=== PATIENT | male | born 1980 | race Caucasian/White ===

== ENCOUNTER 2018-01-19 19:11 | Emergency (ER) | payer OTHER ==
[2018-01-19] MEDS ORDERED: Sodium Chloride 0.9% 1000 ML 1,000 ML IV STA ×2 (19:33)
--- NOTE | 2018-01-19 19:37 | ERPHSYRPT ---
- History of Present Illness Time Seen by Provider: 01/19/18 19:29 Source: patient Exam Limitations: no limitations Patient Subjective Stated Complaint: pt reports being outside on a roof since 0700. states around 1510 he came off the roof and started feeling bad. reports headache and nausea. Triage Nursing Assessment: pt is aox3, pupils perrl, pt afebrile, resps easy and non labored, radial pulses strong and equal, cap refill <3 seconds. pt skin is pink warm and dry. Physician History: 37-year-old white male arrives with complaint of headache and nausea symptoms since 15:10 this afternoon. Patient states he was out on a hot roof all day he had the above noted symptoms beginning around 310 this afternoon. Patient states he tried cooling off however he continues to feel the same. Patient no problems moving he is somewhat diaphoretic. Past medical history is negative. Past surgical history includes orthopedic surgery left shoulder and left elbow surgery. Timing/Duration: today (3:10 pm) Severity: moderate Modifying Factors: Improves With: other (ouut on hot roof all day) Associated Symptoms: nausea, diaphoresis, headaches, No vomiting, No abdominal pain, No shortness of breath, No heartburn, No cough, No chills, No chest pain, No fever, No loss of appetite, No malaise, No rash, No syncope, No seizure, No weakness Allergies/Adverse Reactions: No Known Drug Allergies Allergy (Unverified 01/19/18 19:27) Home Medications: No Reportable Medications [No Reported Medications] 01/19/18 [History] Hx Tetanus, Diphtheria Vaccination/Date Given: Yes Hx Influenza Vaccination/Date Given: No Hx Pneumococcal Vaccination/Date Given: No Immunizations Up to Date: Yes - Review of Systems Constitutional: Malaise, No Fever, No Chills, No Fatigue, No Lethargy, No Night Sweats, No Weakness, No Weight Loss Eyes: No Symptoms Ears, Nose, & Throat: No Symptoms Respiratory: No Cough, No Dyspnea Cardiac: No Chest Pain, No Edema, No Syncope Abdominal/Gastrointestinal: Nausea, No No Symptoms, No Abdominal Pain, No Vomiting, No Diarrhea, No Constipation, No Hematemesis, No Hematochezia, No Melena, No Dysphagia, No Appetite Changes Genitourinary Symptoms: No Dysuria Musculoskeletal: No Back Pain, No Neck Pain Skin: No Rash Neurological: Headache, No Dizziness, No Focal Weakness, No Gait Changes, No Irritability, No Lethargy, No Paralysis, No Parasthesia, No Seizure, No Sensory Changes, No Speech Changes, No Tics, No Tremors, No Vertigo Psychological: No Symptoms Endocrine: No Symptoms All Other Systems: Reviewed and Negative - Past Medical History Pertinent Past Medical History: No - Past Surgical History Past Surgical History: Yes Musculoskeletal: Orthopedic Surgery Other Surgical History: left shoulder. right elbow - Social History Smoking Status: Current every day smoker Drug Use: marijuana Patient Lives Alone: No - Nursing Vital Signs Nursing Vital Signs: Initial Vital Signs Temperature 98.1 F 01/19/18 19:16 Pulse Rate 66 01/19/18 19:16 Respiratory Rate 20 01/19/18 19:16 Blood Pressure 127/84 01/19/18 19:16 O2 Sat by Pulse Oximetry 100 01/19/18 19:16 Pain Scale Pain Intensity 4 - Physical Exam General Appearance: mild distress, anxiety, other (diaphoretic) Eye Exam: PERRL/EOMI, eyes nml inspection Ears, Nose, Throat Exam: normal ENT inspection, TMs normal, pharynx normal, moist mucous membranes Neck Exam: normal inspection, non-tender, supple, full range of motion Respiratory Exam: normal breath sounds, lungs clear, No respiratory distress Cardiovascular Exam: regular rate/rhythm, normal heart sounds, normal peripheral pulses Gastrointestinal/Abdomen Exam: soft, normal bowel sounds, No tenderness, No mass Back Exam: normal inspection, normal range of motion, No CVA tenderness, No vertebral tenderness Extremity Exam: normal inspection, normal range of motion, pelvis stable Neurologic Exam: alert, oriented x 3, cooperative, 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 as tested, normal mood/affect, nml cerebellar function, nml station & gait, sensation nml, No motor deficits Skin Exam: normal color, warm, dry, No rash Lymphatic Exam: No adenopathy SpO2 Interpretation: normal (100%) SpO2: 100 Oxygen Delivery: Room Air - Course Nursing assessment & vital signs reviewed: Yes EKG Interpreted by Me: RATE (69 bpm), Sinus Rhythm, NORMAL AXIS, Other (EKG: Sinus rhythm, 69 bpm, artifact ,, normal axis, no acute ST or T wave noted essentially normal EKG) Ordered Tests: Active Orders 24 hr Category Date Time Status EKG-ER Only STAT Care 01/19/18 19:32 Active IV Insertion STAT Care 01/19/18 19:32 Active AMYLASE Stat Lab 01/19/18 19:43 Completed CBC W DIFF Stat Lab 01/19/18 19:43 Completed CMP Stat Lab 01/19/18 19:43 Completed LIPASE Stat Lab 01/19/18 19:43 Completed UA W/RFX UR CULTURE Stat Lab 01/19/18 20:26 Completed Urine Triage Profile Stat Lab 01/19/18 20:26 Completed Medication Summary Discontinued Medications Generic Name Dose Route Start Last Admin Trade Name Freq PRN Reason Stop Dose Admin Sodium Chloride 1,000 mls @ 999 mls/hr 01/19/18 19:33 01/19/18 19:44 Sodium Chloride 0.9% 1000 Ml IV 01/19/18 20:33 999 mls/hr .Q1H1M STA Administration Sodium Chloride 1,000 mls @ 999 mls/hr 01/19/18 19:33 01/19/18 20:16 Sodium Chloride 0.9% 1000 Ml IV 01/19/18 20:33 999 mls/hr .Q1H1M STA Administration Sodium Chloride Confirm 01/19/18 19:43 Sodium Chloride 0.9% 1000 Ml Administered 01/19/18 19:44 Dose 1,000 mls @ ud .ROUTE .STK-MED ONE Sodium Chloride Confirm 01/19/18 20:12 Sodium Chloride 0.9% 1000 Ml Administered 01/19/18 20:13 Dose 1,000 mls @ ud .ROUTE .STK-MED ONE Lab/Rad Data: Laboratory Result Diagrams 01/19/18 19:43 01/19/18 19:43 Laboratory Results 01/19/18 01/19/18 01/19/18 Range/Units 20:26 20:26 19:43 WBC (4.0-10.5) K/mm3 RBC (4.1-5.6) M/mm3 Hgb (12.5-18.0) gm/dl Hct (42-50) % MCV (78-100) fl MCH (26-32) pg MCHC (32-36) g/dl RDW (11.5-14.0) % Plt Count (150-450) K/mm3 MPV (6-9.5) fl Gran % (36.0-66.0) % Eos # (Auto) (0-0.5) Absolute Lymphs (auto) (1.0-4.6) Absolute Monos (auto) (0.0-1.3) Lymphocytes % (24.0-44.0) % Monocytes % (0.0-12.0) % Eosinophils % (0.00-5.0) % Basophils % (0.0-0.4) % Absolute Granulocytes (1.4-6.9) Basophils # (0-0.4) Sodium 139 (137-145) mmol/L Potassium 4.1 (3.5-5.1) mmol/L Chloride 102 (98-107) mmol/L Carbon Dioxide 21 L (22-30) mmol/L Anion Gap 20.2 H (5-15) MEQ/L BUN 19 (9-20) mg/dL Creatinine 1.16 (0.66-1.25) mg/dL Estimated GFR > 60.0 ML/MIN Glucose 97 (74-106) mg/dL Calcium 10.5 H (8.4-10.2) mg/dL Total Bilirubin 0.60 (0.2-1.3) mg/dL AST 30 (17-59) U/L ALT 22 (0-50) U/L Alkaline Phosphatase 91 (38-126) U/L Serum Total Protein 8.5 H (6.3-8.2) g/dL Albumin 5.0 (3.5-5.0) g/dL Amylase 70 (30-110) U/L Lipase 194 (23-300) U/L Ur Collection Type VOID Urine Color YELLOW (YELLOW) Urine Appearance CLEAR (CLEAR) Urine pH 5.0 (5-6) Ur Specific [place] 1.015 (1.005-1.025) Urine Protein NEGATIVE (Negative) Urine Ketones MODERATE (NEGATIVE) Urine Blood NEGATIVE (0-5) Monty/ul Urine Nitrite NEGATIVE (NEGATIVE) Urine Bilirubin NEGATIVE (NEGATIVE) Urine Urobilinogen NORMAL (0-1) mg/dL Ur Leukocyte Esterase NEGATIVE (NEGATIVE) Urine Culture Reflexed NO (NO) Urine Glucose NEGATIVE (NEGATIVE) mg/dL Urine Opiates Level NEGATIVE (NEGATIVE) Ur Methadone NEGATIVE (NEGATIVE) Urine Barbiturates NEGATIVE (NEGATIVE) Ur Phencyclidine (PCP) NEGATIVE (NEGATIVE) Urine Amphetamine NEGATIVE (NEGATIVE) U Benzodiazepine Level NEGATIVE (NEGATIVE) Urine Cocaine NEGATIVE (NEGATIVE) Urine Marijuana (THC) POSITIVE (NEGATIVE) Specimen Received 01/19/18 2030 01/19/18 Range/Units 19:43 WBC 15.4 H (4.0-10.5) K/mm3 RBC 4.75 (4.1-5.6) M/mm3 Hgb 15.1 (12.5-18.0) gm/dl Hct 42.0 (42-50) % MCV 88.4 (78-100) fl MCH 31.8 (26-32) pg MCHC 36.0 (32-36) g/dl RDW 13.3 (11.5-14.0) % Plt Count 279 (150-450) K/mm3 MPV 10.3 H (6-9.5) fl Gran % 84.0 H (36.0-66.0) % Eos # (Auto) 0.07 (0-0.5) Absolute Lymphs (auto) 1.61 (1.0-4.6) Absolute Monos (auto) 0.74 (0.0-1.3) Lymphocytes % 10.5 L (24.0-44.0) % Monocytes % 4.8 (0.0-12.0) % Eosinophils % 0.5 (0.00-5.0) % Basophils % 0.2 (0.0-0.4) % Absolute Granulocytes 12.94 H (1.4-6.9) Basophils # 0.03 (0-0.4) Sodium (137-145) mmol/L Potassium (3.5-5.1) mmol/L Chloride (98-107) mmol/L Carbon Dioxide (22-30) mmol/L Anion Gap (5-15) MEQ/L BUN (9-20) mg/dL Creatinine (0.66-1.25) mg/dL Estimated GFR ML/MIN Glucose (74-106) mg/dL Calcium (8.4-10.2) mg/dL Total Bilirubin (0.2-1.3) mg/dL AST (17-59) U/L ALT (0-50) U/L Alkaline Phosphatase (38-126) U/L Serum Total Protein (6.3-8.2) g/dL Albumin (3.5-5.0) g/dL Amylase (30-110) U/L Lipase (23-300) U/L Ur Collection Type Urine Color (YELLOW) Urine Appearance (CLEAR) Urine pH (5-6) Ur Specific [place] (1.005-1.025) Urine Protein (Negative) Urine Ketones (NEGATIVE) Urine Blood (0-5) Monty/ul Urine Nitrite (NEGATIVE) Urine Bilirubin (NEGATIVE) Urine Urobilinogen (0-1) mg/dL Ur Leukocyte Esterase (NEGATIVE) Urine Culture Reflexed (NO) Urine Glucose (NEGATIVE) mg/dL Urine Opiates Level (NEGATIVE) Ur Methadone (NEGATIVE) Urine Barbiturates (NEGATIVE) Ur Phencyclidine (PCP) (NEGATIVE) Urine Amphetamine (NEGATIVE) U Benzodiazepine Level (NEGATIVE) Urine Cocaine (NEGATIVE) Urine Marijuana (THC) (NEGATIVE) Specimen Received - Progress Progress: improved Progress Note: 01/19/18 21:20 37-year-old white male arrives with complaints of diaphoresis general malaise headache. Patient apparently on the roof from 7:00 this morning until 3:00 this afternoon really couldn't cooldown. On arrival patient is afebrile vitals are stable he was quite diaphoretic blood pressure 127/84 temp 98 1 pulse 66 respirations 20 sats 100%. Patient's chemistry sodium 139 potassium 4.1 chloride 102 bicarbonate 21 calcium mildly elevated 10.5 normal 8.4-10.2 anion gap is 20.2 EKG sinus rhythm 69 bpm normal axis artifact present no acute ST or T wave changes essentially normal EKG white count 15.4 hemoglobin 15.1 hematocrit 42 platelets 279 Patient is given 2 L of normal saline he is now feeling markedly improved Will discharge patient. - Departure Time of Disposition: 21:22 Departure Disposition: Home Clinical Impression: Heat exhaustion Qualifiers: Encounter type: initial encounter Qualified Code(s): T67.5XXA - Heat exhaustion , unspecified, initial encounter Condition: Fair Critical Care Time: No Referrals: DOCTOR,NO FAMILY [Primary Care Provider] - Additional Instructions: Return home. Plenty of fluids. Keep cool. Follow-up with your family doctor. Return for acute distress or for severe symptoms.
[2018-01-19] MEDS ORDERED: Sodium Chloride 0.9% 1000 ML 1,000 ML ONE ×2 (19:43→20:12)
[2018-01-19 19:50] LABS: BASOPHIL % 0.2 % (0.0-0.4); Basophil (Absolute #) 0.03 (0-0.4); Eosinophil % 0.5 % (0.00-5.0); Eosinophil (Absolute #) 0.07 (0-0.5); Granulocyte Absolute (ANC) 12.94 (1.4-6.9); Hemoglobin 15.1 gm/dl (12.5-18.0); Lymphocyte (Absolute #) 1.61 (1.0-4.6); Lymphocytes % 10.5 % (24.0-44.0); Mean Cell Volume 88.4 fl (78-100); Mean Corpuscular Hemoglobin 31.8 pg (26-32); Mean Platelet Volume 10.3 fl (6-9.5); Monocyte (Absolute #) 0.74 (0.0-1.3); Monocytes % 4.8 % (0.0-12.0); Platelet Count 279 K/mm3 (150-450); Red Blood Count 4.75 M/mm3 (4.1-5.6); Red Cell Distribution Width 13.3 % (11.5-14.0); White Blood Count 15.4 K/mm3 (4.0-10.5)
[2018-01-19 20:03] LABS: ALKALINE PHOSPHATASE 91 U/L (38-126); AMYLASE 70 U/L (30-110); ANION GAP 20.2 MEQ/L (5-15); BLOOD UREA NITROGEN 19 mg/dL (9-20); CHLORIDE 102 mmol/L (98-107); Calcium 10.5 mg/dL (8.4-10.2); Carbon Dioxide 21 mmol/L (22-30); Creatinine 1 1.16 mg/dL (0.66-1.25); Glucose 97 mg/dL (74-106); LIPASE 194 U/L (23-300); Potassium 4.1 mmol/L (3.5-5.1); SGOT/AST 30 U/L (17-59); SGPT/ALT 22 U/L (0-50); SODIUM 139 mmol/L (137-145); Total Protein 8.5 g/dL (6.3-8.2)
[2018-01-19 20:29] LABS: Appearance CLEAR (CLEAR); Bilirubin NEGATIVE (NEGATIVE); Blood NEGATIVE Ery/ul (0-5); Glucose NEGATIVE (NEGATIVE); Ketones MODERATE (NEGATIVE); Leukocyte Esterase NEGATIVE (NEGATIVE); Nitrite NEGATIVE (NEGATIVE); Protein,Urine Dip NEGATIVE (Negative); Specific Gravity 1.015 (1.005-1.025); Urobilinogen NORMAL mg/dL (0-1)
[2018-01-19 20:45] LABS: Amphetamine,Urine NEGATIVE (NEGATIVE); Barbiturate,Urine NEGATIVE (NEGATIVE); Benzodiazepine,Urine NEGATIVE (NEGATIVE); Cocaine,Urine NEGATIVE (NEGATIVE); Methadone,Urine NEGATIVE (NEGATIVE); Opiate,Urine NEGATIVE (NEGATIVE); PCP,Urine NEGATIVE (NEGATIVE); THC,Urine POSITIVE (NEGATIVE)
[2018-01-19 21:00] VITALS: PULSE 68
[2018-01-19 21:34] VITALS: BP 131/81; O2SAT 98
== END 2018-01-19 21:34 | disposition home or self-care (01) ==
LOC: ED 19:11
DX: T67.5XXA Heat exhaustion, unspecified, initial encounter (principal); R51 Headache; R61 Generalized hyperhidrosis; X30.XXXA Exposure to excessive natural heat, initial encounter; Y93.H3 Activity, building and construction
CPT/HCPCS: 36000; 36415; 80053; 80307; 81002; 82150; 83690; 85025; 93005; 96360; 96361; 99284

== ENCOUNTER 2019-01-28 19:16 | Emergency (ER) | payer MEDICAID, OTHER ==
--- NOTE | 2019-01-28 19:24 | ERPHSYRPT ---
- History of Present Illness Time Seen by Provider: 01/28/19 19:24 Source: patient Exam Limitations: no limitations Physician History: 38 y/o right handed white male with chronic right elbow problems over a 20 year period. he denies new injury. pt noticed increasing swelling and fluid right elbow. denies fever or redness. no local orthopedic surgeon Occurred: days ago (2) Method of Injury: other (no injury) Quality: aching Severity of Pain-Max: mild Severity of Pain-Current: mild Extremities Pain Location: elbow: right Modifying Factors: Improves With: movement Associated Symptoms: No chills, No fever, No nausea, No vomiting Allergies/Adverse Reactions: No Known Drug Allergies Allergy (Unverified 01/19/18 19:27) Hx Tetanus, Diphtheria Vaccination/Date Given: Yes Hx Influenza Vaccination/Date Given: No Hx Pneumococcal Vaccination/Date Given: No - Review of Systems Constitutional: No Symptoms Eyes: No Symptoms Ears, Nose, & Throat: No Symptoms Respiratory: No Symptoms Cardiac: No Symptoms Abdominal/Gastrointestinal: No Symptoms Genitourinary Symptoms: No Symptoms Musculoskeletal: Joint Swelling (right elbow) Skin: No Symptoms Neurological: No Symptoms Psychological: No Symptoms Endocrine: No Symptoms Hematologic/Lymphatic: No Symptoms Immunological/Allergic: No Symptoms All Other Systems: Reviewed and Negative - Past Medical History Pertinent Past Medical History: No Neurological History: No Pertinent History ENT History: No Pertinent History Cardiac History: No Pertinent History Respiratory History: No Pertinent History Endocrine Medical History: No Pertinent History Musculoskeletal History: Other (several surgeries right elbow.) GI Medical History: No Pertinent History History: No Pertinent History Psycho-Social History: No Pertinent History Male Reproductive Disorders: No Pertinent History - Past Surgical History Past Surgical History: Yes Neuro Surgical History: No Pertinent History Cardiac: No Pertinent History Respiratory: No Pertinent History Gastrointestinal: No Pertinent History Genitourinary: No Pertinent History Musculoskeletal: Orthopedic Surgery Male Surgical History: No Pertinent History Other Surgical History: left shoulder. right elbow - Social History Smoking Status: Current every day smoker Drug Use: marijuana Patient Lives Alone: No - Physical Exam General Appearance: no apparent distress, alert, anxiety Eyes, Ears, Nose, Throat Exam: normal ENT inspection, moist mucous membranes Neck Exam: normal inspection, non-tender, supple, full range of motion Cardiovascular/Respiratory Exam: chest non-tender Abdominal Exam: non-tender Back Exam: normal inspection, normal range of motion, No CVA tenderness, No vertebral tenderness Shoulder Exam: normal inspection, non-tender, no evidence of injury, normal ROM Elbow/Forearm Exam: swelling (ballotable fluid. no cellulitis. full rom) Wrist Exam: normal inspection, non-tender, no evidence of injury, normal ROM Hand Exam: normal inspection, non-tender, no evidence of injury, normal ROM Neuro/Tendon Exam: normal sensation, normal motor functions, normal tendon functions Mental Status Exam: alert, oriented x 3, cooperative Skin Exam: normal color, warm, dry SpO2 Interpretation: normal O2 Delivery: Room Air - Progress Progress: unchanged Progress Note: 01/28/19 19:34 pt refuses narcotics - Departure Departure Disposition: Home Clinical Impression: Bursal cyst of olecranon, Olecranon bursitis of right elbow Condition: Stable Critical Care Time: No Referrals: DOCTOR,NO FAMILY [Primary Care Provider] - Additional Instructions: ice pack to area 3 times daily for 2 days. call orthopedic surgeon of choice tomorrow for further management. group name provided. Prescriptions: Cephalexin Mh 500 mg [Keflex 500 mg] 500 mg PO TID #21 capsule Prednisone 10 mg [Deltasone 10 mg] 10 mg PO TID #12 tablet
[2019-01-28 20:20] VITALS: BP 110/65; PULSE 60; O2SAT 97
== END 2019-01-28 20:20 | disposition home or self-care (01) ==
LOC: ED 19:16
DX: M71.321 Other bursal cyst, right elbow (principal); M70.21 Olecranon bursitis, right elbow
CPT/HCPCS: 99283

== ENCOUNTER 2023-01-25 07:49 | Emergency (ER) | payer BC, MEDICAID ==
--- NOTE | 2023-01-25 08:48 | ERPHSYRPT ---
- History of Present Illness Time Seen by Provider: 01/25/23 08:25 Historian: patient Exam Limitations: no limitations Patient Subjective Stated Complaint: Pt states "I have this horrible pain just under my rigth lowest rib. It really hurts when I cough or sneeze." Triage Nursing Assessment: Pt presented alert and oriented X 3, skin pwd. Pt ambulates with an upright steady gait, able to speak in clear full sentences pt in no apparent respiratory distress. PT holding his right lower rib. Physician History: 42Years old healthy male presented in the ER with chief complaint of right lower rib cage pain for the last 3 weeks after he coughed really hard. Patient reports having off-and-on pain since then with coughing sneezing, movements, sharp stabbing moderate to severe without difficulty breathing. Denies any sw elling in the chest, no palpitations, no abdominal pain nausea vomiting or urinary complaints. Denies any fall or trauma otherwise. Timing/Duration: week(s) (3), intermittent, sudden, worse Activities at Onset: rest Quality: sharpness, stabbing Severity of Pain-Max: severe Severity of Pain-Current: mild Modifying Factors: Worsens With: coughing, movement, palpation Associated Symptoms: No palpitations, No swelling/lump in chest Prior Chest Pain/Cardiac Workup: no prior cardiac workup Nitro Today/Relief: no nitro taken today Aspirin Treatment Today: no aspirin today Allergies/Adverse Reactions: horseradish Adverse Reaction (Severe, Verified 01/28/19 19:41) Swelling Hx Tetanus, Diphtheria Vaccination/Date Given: Yes Hx Influenza Vaccination/Date Given: No Hx Pneumococcal Vaccination/Date Given: No Travel Risk - International Travel Have you traveled outside of the country in past 3 weeks: No - Coronavirus Screening Are you exhibiting any of the following symptoms?: No Close contact with a COVID-19 positive Pt in past 14-21 Days: No - Vaccine Status Have you recieved a Covid-19 vaccination: No - Review of Systems Constitutional: No Symptoms Ears, Nose, & Throat: No Symptoms Respiratory: No Symptoms Cardiac: Chest Pain Abdominal/Gastrointestinal: No Symptoms Genitourinary Symptoms: No Symptoms Musculoskeletal: No Symptoms Skin: No Symptoms Neurological: No Symptoms Endocrine: No Symptoms Hematologic/Lymphatic: No Symptoms - Past Medical History Pertinent Past Medical History: Yes Neurological History: No Pertinent History ENT History: No Pertinent History Cardiac History: No Pertinent History Respiratory History: No Pertinent History Endocrine Medical History: No Pertinent History Musculoskeletal History: Other GI Medical History: No Pertinent History History: No Pertinent History Psycho-Social History: No Pertinent History Male Reproductive Disorders: No Pertinent History 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 right elbow - Social History Smoking Status: Current every day smoker How long have you smoked: years Exposure to second hand smoke: Yes Drug Use: marijuana Patient Lives Alone: No - Nursing Vital Signs Nursing Vital Signs: Initial Vital Signs Temperature 97.5 F 01/25/23 07:55 Pulse Rate 103 H 01/25/23 07:55 Respiratory Rate 20 01/25/23 07:55 Blood Pressure 157/83 01/25/23 07:55 O2 Sat by Pulse Oximetry 98 01/25/23 07:55 Pain Scale Pain Intensity 4 - Physical Exam General Appearance: no apparent distress, alert Eye Exam: PERRL/EOMI Ears, Nose, Throat Exam: normal ENT inspection, pharynx normal, moist mucous membranes Neck Exam: normal inspection, non-tender, supple, full range of motion Respiratory Exam: normal breath sounds, chest tenderness (Right lower anterior chest wall with no crepitus. No paradoxical movements. No deformity.), lungs clear Cardiovascular Exam: regular rate/rhythm, normal heart sounds Gastrointestinal/Abdomen Exam: soft, normal bowel sounds, No tenderness Extremity Exam: normal inspection, normal range of motion Neurologic Exam: alert, oriented x 3, cooperative Skin Exam: normal color SpO2 Interpretation: normal SpO2: 98 O2 Delivery: Room Air Ordered Tests: Active Orders 24 hr Category Date Time Status CHEST 2 VIEWS (PA AND LAT) Stat Exams 01/25/23 08:19 Completed RIBS UNILATERAL Stat Exams 01/25/23 08:47 Completed Medication Summary Discontinued Medications Generic Name Dose Route Start Last Admin Trade Name Freq PRN Reason Stop Dose Admin Ketorolac Tromethamine 30 mg 01/25/23 09:40 01/25/23 09:45 Ketorolac Tromethamine 30 Mg/Ml Inj IM 01/25/23 09:41 30 mg STAT ONE Administration Ketorolac Tromethamine Confirm 01/25/23 09:43 Ketorolac Tromethamine 30 Mg/Ml Inj Administered 01/25/23 09:44 Dose 30 mg .ROUTE .STTotSpot-MED ONE - Progress Progress: re-examined Air Movement: good Progress Note: 01/25/23 09:44 42Years old healthy male presented in the ER with chief complaint of right lower rib cage pain for the last 3 weeks after he coughed really hard. Patient reports having off-and-on pain since then with coughing sneezing, movements, sharp stabbing moderate to severe without difficulty breathing. Denies any swelling in the chest, no palpitations, no abdominal pain nausea vomiting or urinary complaints. Denies any fall or trauma otherwise. Patient pain is musculoskeletal for sure. Obtained x-rays rib and chest which are negative for rib fracture, pneumothorax or any other acute intrathoracic findings does not have any chest wall deformity. Did not want anything for pain initially, given Toradol for symptomatic relief and will continue with NSAIDs to go home. I believe patient has chest wall strain, recommended ice, Tylenol/dic lofenac, deep breathing exercises and outpatient follow-up. Discussed signs symptoms of worsening needing return to ER which she seems understanding. Stable for discharge. Blood Culture(s) Obtained: No Antibiotics given: No Counseled pt/family regarding: diagnosis, need for follow-up, rad results Medical Desision Making - Diagnostic Testing Diagnostic test were ordered, analyzed, and reviewed by me: Yes Radiological Interpretation: Reviewed by me - Risk of complications The pt has a mod risk of morbidity or mortality based on: Need for prescription drug management - Departure Departure Disposition: Home Clinical Impression: Chest wall muscle strain Condition: Stable Critical Care Time: No Referrals: ANA LILIA SHAFFER MD [Primary Care Provider] - Follow up with PCP 1 day Instructions: Muscle Strain (DC) Additional Instructions: Take Tylenol/diclofenac as needed for pain. Intermittent ice application. Do deep breathing exercises to avoid atelectasis/development of pneumonia. Follow- up with your primary care for reevaluation. Return to ER for worsening pain or if having difficulty breathing, worsening cough/fever chills etc. Prescriptions: Diclofenac Sodium 50 mg PO TID PRN 7 Days #20 tab PRN Reason: Pain
--- NOTE | 2023-01-25 08:51 | XRAY ---
Indication: Right chest pain for weeks. Cough. Comparison: None PA/lateral chest hyperinflated with bilateral upper lobe emphysematous bullae. No focal infiltrate, consolidation, or large effusion. Heart not enlarged. Bony thorax intact. Impression: Nonacute chest with chronic features.
--- NOTE | 2023-01-25 09:20 | XRAY ---
Indication: Right rib pain. Comparison: None 2 view right ribs negative for acute fracture, dislocation, or suspicious bony lesions. Chest reported separately.
[2023-01-25 09:34] VITALS: PULSE 58
[2023-01-25] MEDS ORDERED: TORAdol 30 mg Injection IM ONE (09:40)
[2023-01-25] MEDS ORDERED: TORAdol 30 mg Injection ONE (09:43)
[2023-01-25 09:47] VITALS: O2SAT 98
[2023-01-25 10:13] VITALS: BP 121/73
== END 2023-01-25 10:25 | disposition home or self-care (01) ==
LOC: ED 07:49
DX: S29.011A Strain of muscle and tendon of front wall of thorax, initial encounter (principal); X50.0XXA Overexertion from strenuous movement or load, initial encounter; R07.81 Pleurodynia; Z28.310 Unvaccinated for COVID-19; Z72.0 Tobacco use
CPT/HCPCS: 71046; 71100; 96372; 99283; 99291; J1885